=== PATIENT | male | born 1985 | race Caucasian/White ===

== ENCOUNTER 2021-05-12 19:57 | Emergency (ER) | payer MEDICAID ==
[~2021-05-12] VITALS: Ht 188 cm; Wt 86.0 kg
[~2021-05-12 19:57] MED LIST: LIDOcaine 1% W/epiNEPHrine 1:100,000 20ml vial ONE
[2021-05-12] MEDS ORDERED: LIDOcaine 1% W/epiNEPHrine 1:100,000 20ml vial SQ ONE (21:45)
[2021-05-12] MEDS ORDERED: SULF1TAB49 PO (22:03)
[2021-05-12 23:02] VITALS: BP 121/64
== END 2021-05-12 23:12 | disposition home or self-care (01) ==
LOC: ER 19:58
DX: L02.415 Cutaneous abscess of right lower limb (principal); Z79.899 Other long term (current) drug therapy
CPT/HCPCS: 10060; 99283

== ENCOUNTER 2021-10-29 01:36 | Emergency (ER) | payer MEDICAID, OTHER ==
[~2021-10-29] VITALS: Ht 185.4 cm; Wt 100.0 kg
[2021-10-29 01:50] VITALS: BP 156/73
== END 2021-10-29 01:54 ==
LOC: ER 01:36
DX: Z00.8 Encounter for other general examination (principal); F41.0 Panic disorder [episodic paroxysmal anxiety]; Z59.00 Homelessness unspecified; Z56.0 Unemployment, unspecified
CPT/HCPCS: 99283